=== PATIENT | female | born 1985 | race Caucasian/White ===

== ENCOUNTER 2022-08-29 06:49 | Day surgery (SDC) | payer BC ==
[2022-08-26 10:41] LABS: HCG,QUAL RESULT NEGATIVE (NEGATIVE)
[~2022-08-29] VITALS: Ht 165.1 cm; Wt 66.2 kg
[2022-08-29] MEDS ORDERED: ceFAZolin SODIUM 1 GM in D5W 100 ML IV ONE (07:00)
[2022-08-29] MEDS ORDERED: KETOROLAC TROMETHAMINE 30 MG VIAL IVP PRN (11:00)
[2022-08-29] MEDS ORDERED: ONDANSETRON HCL 4 MG/2 ML VIAL IVP PRN ×2 (11:00→13:00)
[2022-08-29] MEDS ORDERED: MEPERIDINE HCL/PF 25 MG/ML DISP.SYRIN IVP PRN (11:00)
[2022-08-29] MEDS ORDERED: NALOXONE HCL 0.4 MG/ML AMP (NARCAN) IVP PRN (11:00)
[2022-08-29] MEDS ORDERED: HYDROmorphone 1 MG/ML INJ. CARTRIDGE IVP PRN (11:00)
[2022-08-29] MEDS ORDERED: LR 1,000 ML IV SCH (11:00)
[2022-08-29] MEDS ORDERED: ONDANSETRON HCL 4 MG/2 ML VIAL ONE (12:45)
[2022-08-29] MEDS ORDERED: PROPOFOL 200MG/ 20ML VIAL (DIPRIVAN) IV ONE (12:45)
[2022-08-29] MEDS ORDERED: DEXAMETHASONE SOD PHOSPHATE 4 MG/ML VIAL ONE (12:45)
[2022-08-29] MEDS ORDERED: WATER FOR IRRIGATION,STERILE 1,000 ML IRRIG.SOLN IR ONE (12:45)
[2022-08-29] MEDS ORDERED: NEOSTIGMINE METHYLSULFATE 1 MG/ML, 10 ML VIAL ONE (12:45)
[2022-08-29] MEDS ORDERED: METOCLOPRAMIDE HCL 10 MG/2 ML VIAL ONE (12:45)
[2022-08-29] MEDS ORDERED: ROCURONIUM BROMIDE 10 MG/ML (ZEMURON) ONE (12:45)
[2022-08-29] MEDS ORDERED: LR 1,000 ML IV.SOLN IV ONE (12:45)
[2022-08-29] MEDS ORDERED: LIDOCAINE/EPI 1% 1:100000 20 ML VIAL ONE (12:45)
[2022-08-29] MEDS ORDERED: GLYCOPYRROLATE 0.2 MG/ML VIAL ONE (12:45)
[2022-08-29] MEDS ORDERED: NS 1000 ML IV.SOLN IV ONE (12:45)
[2022-08-29] MEDS ORDERED: KETOROLAC TROMETHAMINE 30 MG VIAL ONE (12:45)
[2022-08-29] MEDS ORDERED: fentaNYL CITRATE/PF 100 MCG/2 ML AMP ONE (12:45)
[2022-08-29] MEDS ORDERED: MIDAZOLAM HCL 5 MG/ML VIAL (VERSED) IV ONE (12:45)
[2022-08-29] MEDS ORDERED: SEVOFLURANE 15 MIN GAS INH ONE (12:45)
[2022-08-29] MEDS ORDERED: HYDROcodone/ACETAMIN 5-325 MG TAB (NORCO/ VICODIN) PO PRN (13:00)
[2022-08-29] MEDS ORDERED: ONDANSETRON 4 MG ODT TAB PO PRN (13:00)
[2022-08-29] MEDS ORDERED: ACETAMINOPHEN 500 MG TABLET PO PRN (13:00)
[2022-08-29 15:18] VITALS: BP_SYST 120
== END 2022-08-30 14:35 | disposition home or self-care (01) ==
LOC: SDS 06:49 → SMU 06:50 → SDS 08-30 14:35
PROVIDERS: ATTEND Otolaryngology
DX: J34.2 Deviated nasal septum (principal); J34.3 Hypertrophy of nasal turbinates; J31.0 Chronic rhinitis; Z20.822 Contact with and (suspected) exposure to COVID-19
CPT/HCPCS: 84703; 87081; 30520; 30140; 30468; 36415; 87426; J2710; J0690; J1100; J3490; J1885; J2765; J2250; J2405; J2704; J3010; J7060; J7120; J7030